=== PATIENT | female | born 1975 | race Two or more races ===

== ENCOUNTER 2018-07-20 22:04 | Emergency (ER) | payer MEDICAID, OTHER ==
[~2018-07-20] VITALS: Ht 152.4 cm; Wt 69.9 kg
--- NOTE | 2018-07-20 23:28 | NUR ---
Pt BIBSelf complaining of pain under her L Breast x 1 week. She states the pain is non-radiating 5/10. Pt respirations are even and unlabored. Pt [id number]. Pt put on the monitor and pending eval from ER .
--- NOTE | 2018-07-20 23:30 | NUR ---
OFELIA BOB AT BEDSIDE.
--- NOTE | 2018-07-21 00:12 | NUR ---
Pt taken to Radiology for Xray.
--- NOTE | 2018-07-21 00:22 | NUR ---
Pt returned from Radiology.
[2018-07-21] MEDS ORDERED: HYDROCODONE/APAP 5/325MG 1 EACH TABLET ONE (00:57)
[2018-07-21] MEDS ORDERED: HYDROCODONE/APAP 5/325MG 1 EACH TABLET PO ONE (01:00)
--- NOTE | 2018-07-21 01:23 | NUR ---
Patient discharged to home in stable condition. Written and verbal after care instructions given. Patient verbalizes understanding of instruction. Pt ambulatory with steady gait.
[2018-07-21 01:24] VITALS: BP 128/88
== END 2018-07-21 01:25 | disposition home or self-care (01) ==
LOC: ER 22:13
DX: S20.212A Contusion of left front wall of thorax, initial encounter (principal); W22.8XXA Striking against or struck by other objects, initial encounter; E03.9 Hypothyroidism, unspecified; Y93.89 Activity, other specified; Y92.89 Other specified places as the place of occurrence of the external cause; Y99.8 Other external cause status
CPT/HCPCS: 71100; 93005; 99283; A4606

== ENCOUNTER 2022-07-03 02:43 | Emergency (ER) | payer MEDICAID, OTHER ==
[~2022-07-03] VITALS: Ht 152.4 cm; Wt 72.6 kg
--- NOTE | 2022-07-03 03:02 | NUR ---
BIBFAMILY. RLQ ABDOMINAL PAIN X 2 DAYS. FEELS BURNING & SWOLLEN. PATIENT ALERT AND ORIENTED X3. AMBULATORY WITH NON LABORED BREATHING IN BED 10 ON MONITOR AND POX, AWAITING MD FUNEZ.
[2022-07-03] MEDS ORDERED: KETOROLAC TROMETHAMINE INJ 30 MG/ML VIAL ONE (03:16)
[2022-07-03] MEDS ORDERED: ONDANSETRON HCL/PF 4 MG/2 ML VIAL ONE (03:16)
--- NOTE | 2022-07-03 03:18 | NUR ---
BLOOD COLLECTED AND SENT TO LAB
[2022-07-03] MEDS ORDERED: KETOROLAC TROMETHAMINE INJ 30 MG/ML VIAL IV ONE (03:30)
[2022-07-03] MEDS ORDERED: ONDANSETRON HCL/PF 4 MG/2 ML VIAL IVP ONE (03:30)
[2022-07-03] MEDS ORDERED: IV NS 0.9% 500 ML BAG IV ONE (03:30)
[2022-07-03 04:04] LABS: BILIRUBIN,URINE NEGATIVE (NEGATIVE); COLOR,URINE OTHER (YELLOW); LEUKOCYTE ESTERASE ,URINE NEGATIVE (NEGATIVE); NITRITE, URINE NEGATIVE (NEGATIVE); PROTEIN,URINE NEGATIVE (NEGATIVE); UGLUCOSE NEGATIVE (NEGATIVE); UROBILINOGEN,URINE 0.2 EU/dL (0.2)
[2022-07-03 04:08] LABS: BASOPHILS % (AUTO) 0.8 % (0.0-2.0); EOSINOPHILS % (AUTO) 4.4 % (0.0-6.0); HEMATOCRIT 43 % (33-45); LYMPHOCYTES # (AUTO) 0.6 K/uL (0.8-4.8); LYMPHOCYTES % (AUTO) 21.7 % (20.0-44.0); MEAN CORPUSCULAR HGB CONC 32 g/dl (31.0-36.0); MEAN CORPUSCULAR VOLUME 83 fL (82-100); MONOCYTES # (AUTO) 0.4 K/uL (0.1-1.30); MONOCYTES % (AUTO) 11.9 % (2.0-12.0); NEUTROPHILS # (AUTO) 1.8 K/uL (1.8-8.9); NEUTROPHILS % (AUTO) 61.2 % (43.0-81.0); PLATELET COUNT (AUTO) 232 K/uL (150-450); RED BLOOD CELL COUNT(AUTO) 5.19 MIL/uL (4.0-5.2)
[2022-07-03 04:11] LABS: CALCIUM, SERUM 8.7 mg/dL (8.5-10.1); CREATININE 0.8 mg/dL (0.6-1.3); POTASSIUM 3.4 mmol/L (3.5-5.1)
[2022-07-03 04:17] LABS: BILIRUBIN,DIRECT 0.1 mg/dL (0.0-0.2); BILIRUBIN,TOTAL 0.2 mg/dL (0.2-1.0); TOTAL PROTEIN, SERUM 8.9 g/dL (6.4-8.2)
--- NOTE | 2022-07-03 06:24 | NUR ---
IV removed. Catheter intact and site benign. Pressure and 4x4 applied to site. No bleeding noted.
--- NOTE | 2022-07-03 06:24 | NUR ---
Patient discharged to home in stable condition. Written and verbal after care instructions given. Patient verbalizes understanding of instruction.
[2022-07-03 07:08] VITALS: BP 145/88
[2022-07-03 13:03] LABS: BASOPHILS % (MANUAL) 0 % (0.0-2.0); EOSINOPHILS % (MANUAL) 4 % (0-4); LYMPHOCYTES % (MANUAL) 24 % (16-48); MONOCYTES % (MANUAL) 15 % (0-11.0); NEUTROPHILS % (MANUAL) 57 (42-76)
== END 2022-07-03 07:08 | disposition home or self-care (01) ==
LOC: ER 02:44
DX: R10.31 Right lower quadrant pain (principal); M06.9 Rheumatoid arthritis, unspecified; E03.9 Hypothyroidism, unspecified
CPT/HCPCS: 99285; 74176; 96374; 76856; 96361; 96375; 85025; 80048; 83690; 80076; 81003; 36415; 85730; 85007; J1885; J2405; J7030

== ENCOUNTER 2022-08-19 15:07 | Emergency (ER) | payer MEDICAID ==
[~2022-08-19] VITALS: Ht 152.4 cm; Wt 68.0 kg
--- NOTE | 2022-08-19 15:20 | NUR ---
BIBS C/O cough and congestion started yesterday. worst since last night.
[2022-08-19] MEDS ORDERED: BENZONATATE 100 MG CAPSULE PO ONE (15:54)
--- NOTE | 2022-08-19 15:58 | NUR ---
SWAB FOR COVID19 SENT TO LAB
[2022-08-19] MEDS ORDERED: BENZONATATE 100 MG CAPSULE PO PRN (16:00)
--- NOTE | 2022-08-19 16:46 | NUR ---
call from lab,(+) for covid 19
[2022-08-19] MEDS ORDERED: ALBUTEROL FS 2.5 MG/3 ML VIAL.NEB ONE (17:09)
[2022-08-19] MEDS ORDERED: IPRATROPIUM NEB FS 0.5 MG/2.5 ML AMPUL.NEB ONE (17:09)
[2022-08-19] MEDS ORDERED: ALBUTEROL FS 2.5 MG/3 ML VIAL.NEB NEB ONE (17:30)
[2022-08-19] MEDS ORDERED: IPRATROPIUM NEB FS 0.5 MG/2.5 ML AMPUL.NEB NEB ONE (17:30)
[2022-08-19] MEDS ORDERED: ALBU6.7H9 INH (17:43)
[2022-08-19] MEDS ORDERED: BENZ-13 PO (17:43)
--- NOTE | 2022-08-19 17:56 | NUR ---
Patient discharged to home in stable condition. Written and verbal after care instructions given. Patient verbalizes understanding of instruction.
[2022-08-19 17:58] VITALS: BP 125/85
== END 2022-08-19 17:56 | disposition home or self-care (01) ==
LOC: ER 15:09
DX: U07.1 COVID-19 (principal); E03.9 Hypothyroidism, unspecified; Z79.899 Other long term (current) drug therapy
CPT/HCPCS: 99283; 87426; 94640; C9803

== ENCOUNTER 2023-01-28 21:16 | Emergency (ER) | payer MEDICAID ==
[~2023-01-28] VITALS: Ht 152.4 cm; Wt 72.6 kg
[~2023-01-28 21:16] MED LIST: ALBU6.7H9 INH; BENZ-13 PO
[2023-01-28 23:52] VITALS: TEMP 98.8
[2023-01-28 23:57] VITALS: BP 141/81; O2SAT 98
[2023-01-29 00:15] LABS: APPEARANCE,URINE SLIGHTLY CLOUDY (CLEAR); BILIRUBIN,URINE NEGATIVE (NEGATIVE); BLOOD, URINE 2+ Ery/uL (NEGATIVE); COLOR,URINE YELLOW (YELLOW); KETONES,URINE NEGATIVE (NEGATIVE); LEUKOCYTE ESTERASE ,URINE 2+ (NEGATIVE); NITRITE, URINE POSITIVE (NEGATIVE); PH,URINE 6.5 (5.0-8.0); PROTEIN,URINE 1+ mg/dl (NEGATIVE); UGLUCOSE NEGATIVE (NEGATIVE); UROBILINOGEN,URINE 0.2 EU/dL (0.2)
[2023-01-29 00:17] LABS: PREGNANCY TEST URINE QUAL NEGATIVE (NEGATIVE)
[2023-01-29 00:27] LABS: ADD URINE CULTURE YES; BACTERIA,URINE Many /HPF (None Seen); WBC,URINE TOO NUMEROUS TO COUN /HPF (0-3)
[2023-01-29] MEDS ORDERED: NITR100C6 PO (00:57)
[2023-01-29] MEDS ORDERED: NITROFURANTOIN/MONOHYDRATE MACROCRYSTALS 100 MG CAPSULE ONE (00:59)
[2023-01-29] MEDS ORDERED: NITROFURANTOIN/MONOHYDRATE MACROCRYSTALS 100 MG CAPSULE PO ONE (01:00)
== END 2023-01-29 01:04 | disposition home or self-care (01) ==
LOC: ER 21:17
DX: N39.0 Urinary tract infection, site not specified (principal); E03.9 Hypothyroidism, unspecified; M06.9 Rheumatoid arthritis, unspecified
CPT/HCPCS: 81001; 84703-TC; 87086-TC